=== PATIENT | female | born 1955 | race Caucasian/White ===

== ENCOUNTER 2016-12-04 08:56 | Emergency (ER) | payer OTHER ==
[~2016-12-04] VITALS: Ht 157.5 cm; Wt 56.8 kg
[2016-12-04] MEDS ORDERED: METH5TAB2 PO (09:23)
[2016-12-04] MEDS ORDERED: HydrOXYzine PAMOATE 50 MG CAPSULE PO ONE (11:15)
[2016-12-04 11:26] VITALS: BP 162/102
== END 2016-12-04 11:43 | disposition home or self-care (01) ==
LOC: EMS 09:00
DX: S83.91XA Sprain of unspecified site of right knee, initial encounter (principal); F41.9 Anxiety disorder, unspecified; G89.29 Other chronic pain; F17.210 Nicotine dependence, cigarettes, uncomplicated; X58.XXXA Exposure to other specified factors, initial encounter; Y93.89 Activity, other specified; Y92.89 Other specified places as the place of occurrence of the external cause; Y99.8 Other external cause status
CPT/HCPCS: 99284